=== PATIENT | male | born 1975 | race Caucasian/White ===

== ENCOUNTER 2018-04-18 12:54 | Day surgery (SDC) | payer OTHER ==
[~2018-04-18] VITALS: Ht 185.4 cm; Wt 99.8 kg
[~2018-04-18 12:54] MED LIST: ADULT ASPIRIN81 MG PO; BYSTOLIC5 MG PO; FISH OIL 1,0001 EAC8 PO; MICROZIDE12.5 M1 PO; MULTIPLE VITAM1 EAC1 PO; PENNSAID2 GM TP; VASOTEC10 MG PO; ZYLOPRIM100 MG PO
[2018-04-18 13:20] VITALS: BP 153/79
[2018-04-18 17:49] VITALS: BP 131/73
[2018-04-18 18:27] VITALS: BP 139/71
== END 2018-04-18 18:45 | disposition home or self-care (01) ==
LOC: SDC 12:54
DX: G57.52 Tarsal tunnel syndrome, left lower limb (principal); M72.2 Plantar fascial fibromatosis; I12.9 Hypertensive chronic kidney disease with stage 1 through stage 4 chronic kidney disease, or unspecified chronic kidney disease; N18.9 Chronic kidney disease, unspecified; M10.9 Gout, unspecified
CPT/HCPCS: J0131; J0330; J0690; J1100; J1170; J2250; J3010; S0020